=== PATIENT | female | born 1970 | race Caucasian/White ===

== ENCOUNTER → 2020-07-05 | Outpatient (CLI) | payer OTHER ==
[~2020-07-05] MED LIST: ADIPEX-P37.5 MG PO; ADVIL200 M1 PO; ALLEGRA ALLERG180 MG PO; ALLERCLEAR10 MG PO; BAYER CHEWABLE81 MG PO; BIRTH CONTROL PILL PO; BLISOVI 24 FE1 EACH PO; CYMBALTA30 MG PO; MS CONTIN15 MG PO; MULTI VITAMIN1 EACH PO; NEURONTIN 300M300 M2 PO; NORETHINDRONE AC5 M2 PO; TRAZODONE HCL100 MG PO; TYLENOL325 MG PO; ZYRTEC10 M2 PO
[2020-07-05 11:04] LABS: HEMATOCRIT 40.4 % (37.0-47.0); HEMOGLOBIN 13.1 gm/dL (12.0-15.0); MCH 25.7 pg (26.0-34.0); MCHC 32.5 g/dL (28.0-37.0); MCV 79.1 fL (80.0-100.0); RBC 5.11 mil/uL (4.20-5.00); RDW 16.9 % (10.5-14.5); WBC 6.5 thou/uL (4.0-11.0)
[2020-07-05 11:19] LABS: ALBUMIN 3.7 g/dL (3.4-5.0); CALCIUM 9.1 mg/dL (8.5-10.1); CREATININE 1.1 mg/dL (0.6-1.0); POTASSIUM 4.2 mmol/L (3.5-5.1)
[2020-07-05 11:20] LABS: PROTIME 10.9 Seconds (9.3-11.4)
[2020-07-05 11:56] LABS: URINE BILIRUBIN NEGATIVE (Negative); URINE BLOOD NEGATIVE (Negative); URINE CLARITY CLEAR; URINE COLOR YELLOW; URINE GLUCOSE-RANDOM* NEGATIVE (Negative); URINE KETONES NEGATIVE (Negative); URINE LEUKOCYTES-REFLEX NEGATIVE (Negative); URINE NITRITE-REFLEX NEGATIVE (Negative); URINE PROTEIN (DIPSTICK) TRACE (Negative); URINE SPECIFIC GRAVITY >= 1.030 (1.005-1.035); URINE UROBILINOGEN 0.2 E.U./dl (0.2-1.0)
== END ==
LOC: LAB 09:00
PROVIDERS: ATTEND Orthopaedic Surgery
DX: Z01.812 Encounter for preprocedural laboratory examination (principal); Z96.651 Presence of right artificial knee joint; M17.11 Unilateral primary osteoarthritis, right knee

== ENCOUNTER → 2020-07-10 | Outpatient (CLI) | payer OTHER ==
[~2020-07-10] MED LIST changes: -BAYER CHEWABLE81 MG PO; -MS CONTIN15 MG PO; -NEURONTIN 300M300 M2 PO
== END ==
LOC: LAB 11:21
PROVIDERS: ATTEND Orthopaedic Surgery
DX: Z01.812 Encounter for preprocedural laboratory examination (principal); Z20.822 Contact with and (suspected) exposure to COVID-19

== ENCOUNTER 2020-07-16 11:58 | Inpatient (IN) | payer OTHER ==
[2020-07-05 11:04] LABS: HEMATOCRIT 40.4 % (37.0-47.0); HEMOGLOBIN 13.1 gm/dL (12.0-15.0); MCH 25.7 pg (26.0-34.0); MCHC 32.5 g/dL (28.0-37.0); MCV 79.1 fL (80.0-100.0); RBC 5.11 mil/uL (4.20-5.00); RDW 16.9 % (10.5-14.5); WBC 6.5 thou/uL (4.0-11.0)
[2020-07-05 11:19] LABS: ALBUMIN 3.7 g/dL (3.4-5.0); CALCIUM 9.1 mg/dL (8.5-10.1); CREATININE 1.1 mg/dL (0.6-1.0); POTASSIUM 4.2 mmol/L (3.5-5.1)
[2020-07-05 11:20] LABS: PROTIME 10.9 Seconds (9.3-11.4)
[2020-07-05 11:56] LABS: URINE BILIRUBIN NEGATIVE (Negative); URINE BLOOD NEGATIVE (Negative); URINE CLARITY CLEAR; URINE COLOR YELLOW; URINE GLUCOSE-RANDOM* NEGATIVE (Negative); URINE KETONES NEGATIVE (Negative); URINE LEUKOCYTES-REFLEX NEGATIVE (Negative); URINE NITRITE-REFLEX NEGATIVE (Negative); URINE PROTEIN (DIPSTICK) TRACE (Negative); URINE SPECIFIC GRAVITY >= 1.030 (1.005-1.035); URINE UROBILINOGEN 0.2 E.U./dl (0.2-1.0)
[2020-07-16] VITALS (8 sets, daily range): BP systolic 114–125; BP diastolic 68–79
[~2020-07-16] VITALS: Ht 172.7 cm; Wt 112.5 kg
--- NOTE | 2020-07-16 18:30 | NUR ---
PT RECEIVED AT 1700 FROM [facility] RM ALERT AND IN NO ACUTE DISTRESS. PT ASSESSED AND ORIENTED TO THE UNIT. TEACHING DONE RE POST OP DRESSING AND POLAR TACHO. TAKING FLUIDS W/O NAUSEA. IV FLUIDS INFUSING. DENIES PAIN AT THIS TIME.
[2020-07-17] VITALS (8 sets, daily range): BP systolic 98–147; BP diastolic 52–70
--- NOTE | 2020-07-17 05:00 | NUR ---
RECIEVED CARE OF THIS PATIENT AT 1900. PATIENT ALERT ANDORIENTED X4. HAS BRENDA DRESSING ON R KNEE WITH TEDS AND SCD'S GISSELL. POLAR ICE ON R KNEE ALSO. 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 FLUIDS INFUSINF IN RH PIV. C/O PAIN, MED GIVEN WHEN TIME. SLEPT OFF AND ON DURING NIGHT.
[2020-07-17 05:45] LABS: HEMATOCRIT 35.1 % (37.0-47.0); HEMOGLOBIN 11.2 gm/dL (12.0-15.0); MCH 25.7 pg (26.0-34.0); MCV 80.4 fL (80.0-100.0); RBC 4.37 mil/uL (4.20-5.00); RDW 16.6 % (10.5-14.5); WBC 14.1 thou/uL (4.0-11.0)
--- NOTE | 2020-07-17 11:05 | NUR ---
Received awake on bed. Due medications given as prescribed, able to swallow meds w/o difficulty. On room air. Vital signs stable. On regular diet, tolerating well; no nausea, no vomiting and no abdominal pain noted. On MS, not on telemetry, no complains and signs of chest pain, crushing sensation and heaviness. Continent of bowel and bladder; using bedpan or bedside commode at times; falls bundle in place. With D51/2NS at 100cc/hr, infusing well at R hand. S/P TKR- R- BRENDA dressing, SCDs, Oren hose and ice pack in place; NVS intact. Assisted in ADLs. Complained of pain, due PRN pain meds given as prescribed. Pt seen and examined by physical therapist today, able to sit on the chair. Seen and examined by Ortho PA- discharge pending today, pt aware. Pharmacy called- one of pt's prescribed meds on Emar not carried by hospital- asked pt to bring meds from home if possible- pharmacist informed and aware. To continue monitoring patient.
--- NOTE | 2020-07-17 11:18 | NUR ---
ASSESSMENT: CM REVIEWED CHART AND SPOKE WITH PATIENT. PT IS S/P TKA. PT REPORTS LIVING IN A HOUSE WITH HER 14 YEAR OLD SON WHO SHE HAS PART OF THE WEEK. PT REPORTS SHE HAS ONE STEP TO ENTER THE HOME AND ABOUT 15 STEPS WITH HANDRAILS TO THE UPPER LEVEL. PT REPORTS SHE HAS A CANE AT HOME BUT WAS TOLD BY PHYSICAL THERAPY SHE WILL NEED A WALKER. CM NOTIFIED PT THAT CM CAN ASSIST. PT HAS NO PREFERENCE OF DME COMPANY. [employer] DOES NOT ACCEPT [employer]. CM REACHED OUT TO [facility] AND THEY CAN PROVIDER HER WITH A WALKER AND WILL DELIVER IT TO HER ROOM. CM FAXED [facility] NEEDED CLINICAL. PT [facility] [place] [place] [facility] THURSDAY AT 1330. PT WILL WORK WITH THERAPY AND POSSIBLE DISCHARGE. CM WILL CONTINUE TO FOLLOW.
--- NOTE | 2020-07-17 22:09 | NUR ---
ASSESSED AT START OF SHIFT. PT C/O PAIN MANAGED BY PO PAIN MEDICATION. EVENING MEDS GIVEN AND PT ALCON IT WELL. IV INTACT AND SL. RT KNEE DRESSING C/D/I. POLAR PACK, SCD'S, BRENDA DRESSING IN PLACE. FALL PREC IN PLACE. AND CALL LIGHT AT REACH.
[2020-07-18 03:00] VITALS: BP 105/67
[2020-07-18 04:59] LABS: HEMATOCRIT 32.1 % (37.0-47.0); HEMOGLOBIN 10.2 gm/dL (12.0-15.0); MCH 25.8 pg (26.0-34.0); MCHC 31.7 g/dL (28.0-37.0); MCV 81.3 fL (80.0-100.0); RBC 3.95 mil/uL (4.20-5.00); RDW 17.2 % (10.5-14.5); WBC 7.7 thou/uL (4.0-11.0)
[2020-07-18 07:53] VITALS: BP 110/65
--- NOTE | 2020-07-18 10:13 | O ---
[facility] [place] [address] OPERATIVE REPORT Name: CHIKI ECHEVARRIA Room #: 438-P [facility] Sean#: [id number] Admission: 07/16/20 Attend Phys: Haim Joya MD Discharge: Date of : 66 Report #: [id number] THIS REPORT FOR: cc: Physician not on staff Physician not on staff Haim Joya MD ~ DATE OF SERVICE: 07/16/2020 PREOPERATIVE DIAGNOSIS: Right knee osteoarthritis. POSTOPERATIVE DIAGNOSIS: Right knee osteoarthritis. PROCEDURE: Right total knee arthroplasty using Navio robotic pharmacy affairs assistant. SURGEON: Haim Joya MD. SPORTS EQUIPMENT REPAIRER: Saundra Díaz PA-C. INDICATIONS FOR SPORTS EQUIPMENT REPAIRER: Throughout the case, extensive retraction and manipulation of the knee was required. This was afforded to me by my pharmacy affairs assistant. ANESTHESIA: LMA with adductor canal block. IMPLANTS: [employer]hew size 4 Journey II BCS Oxinium femur, size 3 tibia, a size 11 polyethylene, and size 35 patella. TOURNIQUET TIME: 50 minutes. ESTIMATED BLOOD LOSS: 25 mL. COMPLICATIONS: None. SPECIMENS: None. CONDITION UPON LEAVING THE OPERATING ROOM: Stable. INDICATIONS FOR PROCEDURE: The patient is a 50-year-old female with right knee osteoarthritis. She had failed conservative measures for this; and after discussion with her, she elected for right total knee arthroplasty. DESCRIPTION OF PROCEDURE: Risks, benefits, alternatives, and complications were discussed in detail with the patient including, but not limited to, risk of anesthesia, risk of damage to nerves, arteries, blood vessels, risk for infection, bleeding, risk for continued knee pain, need for reoperation. Informed consent was obtained from the patient. Right knee was appropriately [address] [address] OPERATIVE REPORT Name: CHIKI ECHEVARRIA Room #: 438-P [facility] Arturo M.R.#: [id number] Admission: 07/16/20 Attend Phys: Haim Joya MD Discharge: Date of : 66 Report #: [id number] marked in the preoperative holding area. IV Ancef was given for preoperative antibiotics. Adductor canal block was placed by Anesthesia. She was brought to the operating room and placed in supine position on operating room table. LMA anesthesia was induced without complication. Tourniquet was placed on the right thigh. Right lower extremity was prepped and draped in normal sterile fashion. Timeout was performed properly identifying the patient and procedure as well as the instrumentation and implants. All in the operating room were in agreement. Right lower extremity was exsanguinated, tourniquet was inflated. Tourniquet time was 50 minutes. Standard midline approach to knee was made with 10 blade through the skin. Dissection was taken down sharply to the fascia. Deep flaps were developed medially and laterally. Fresh 10 blade was used to make a medial parapatellar arthrotomy and the knee was inspected. There was severe tricompartmental osteoarthritis. ACL and PCL were removed sharply. Reference pins were placed in the femur and the tibia. The knee was then digitally mapped using the ItsMy[employer]s robotic system. Intraoperative plan was made and we sized a size 4 femur with a size 3 tibia and a 10 spacer. After acceptance of the intraoperative plan, the distal femoral cut was made with Navio bur. Distal femoral cutting block was pinned in place and chamfer cuts were made. Attention was turned to the tibia. Remainder of the menisci removed with Bovie cautery. Tibial resection guide was pinned in place using the Navio for placement and tibial resection was made. Flexion and extension gaps were then checked and found to be tight medially in extension. A limited medial release was performed using the pie crust technique. This balanced the knee well. Tibia was then sized, found to be a size 3. A size 3 tibial trial was placed, pinned, and punched. A size 4 femoral trial was placed and box cut was made. This was then trialed with a size 10 and then a size 11 polyethylene and a size 11 polyethylene, demonstrated 1-2 mm of laxity medially and laterally throughout range of motion of the knee. 5 mm of bone was resected from the posterior surface of the patella and a size 35 patellar trial button was placed. Knee was taken through range of motion, found to be stable, found to have good patellar tracking. Trial components were removed. Bony ends were thoroughly irrigated with normal saline and final size 3 tibia, size 4 Journey II BCS Oxinium femur and a size 35 patella were cemented in place using standard cementation techniques. While the cement cured, a periarticular injection consisting of morphine, ropivacaine, epinephrine, and Toradol were placed around the knee joint capsule. After the cement cured, tourniquet was deflated. Hemostasis was obtained with Bovie cautery. Final size 11 polyethylene was placed. A gram of vancomycin was placed deep in the joint. The fascia was closed with 0 Vicryl, skin was closed with 2-0 Vicryl, skin staple and a BRENDA dressing was applied. The patient tolerated this procedure well and went to recovery room under care of anesthesia postoperatively. <ELECTRONICALLY SIGNED> By: Haim Joya MD 07/18/20 [id number] Haim Joya MD /nt
--- NOTE | 2020-07-18 11:02 | NUR ---
Assumed care of pt at 0700. Pt a&ox4. C/o pain in rt knee. Prn pain meds administered. Pt worked with physical therapy this am. Will likely stay in the hospital another night. Dressing c/d/i. SCDs and YONATAN hose in place. Polar care in place. Call light within reach. Will continue to monitor.
--- NOTE | 2020-07-18 13:48 | NUR ---
ON-GOING ASSESSMENT: CM REVIEWED CHART AND MET WITH PATIENT. PT DID NOT PROGRESS WELL WITH THERAPY TODAY AND WILL REMAIN IN HOUSE OVERNIGHT. CM DISCUSSED POSSIBLE OPTIONS FOR SNF IF NEEDED VS HOME HEALTH /OUTPATIENT. CM PROVIDED PATIENT WITH A [employer] SNF LIST FOR HER TO REVIEW. PT IS HOPEFUL SHE WILL BE ABLE TO PROGRESS WELL WITH THERAPY TOMORROW. CM WILL CONTINUE TO FOLLOW TO ASSIST NEEDED.
[2020-07-18] MEDS ORDERED: MS CONTIN15 MG PO (15:31)
[2020-07-18] MEDS ORDERED: BAYER CHEWABLE81 MG PO (15:31)
[2020-07-18] MEDS ORDERED: NEURONTIN 300M300 M2 PO (15:31)
[2020-07-18 15:45] VITALS: BP 106/63
[2020-07-18 20:48] VITALS: BP 99/57
--- NOTE | 2020-07-18 23:55 | NUR ---
ASSESSED AT START OF SHIFT. PT A&OX4. C/O PAIN MANAGED BY PO PAIN MEDS. IV INTACT AND SALINE LOCK. BRENDA DRESSING, POLAR PACK AND SCD'S IN PLACE. VOIDS VIA BED [place]. NIGHT TIME MEDS GIVEN AND PT ALCON IT WELL. FALL PREC IN PLACE AND CALL LIGHT AT REACH WILL CONT TO MONITOR.
[2020-07-19 05:24] LABS: HEMATOCRIT 34.2 % (37.0-47.0); HEMOGLOBIN 10.9 gm/dL (12.0-15.0); MCH 25.7 pg (26.0-34.0); MCHC 31.8 g/dL (28.0-37.0); MCV 80.8 fL (80.0-100.0); RBC 4.23 mil/uL (4.20-5.00); RDW 17.1 % (10.5-14.5); WBC 7.3 thou/uL (4.0-11.0)
[2020-07-19 05:47] VITALS: BP 97/53
[2020-07-19 07:59] VITALS: BP 92/58
--- NOTE | 2020-07-19 12:52 | NUR ---
ON-GOING ASSESSMENT: CM REVIEWED CHART AND SPOKE WITH PATIENT. PHYSICAL THERAPY SAW PATIENT AND RECOMMENDING SNF. PT REPORTS WANTING TO GO SOMEWHERE CLOSE TO WHERE HER MOTHER LIVES OFF [address]. PT HAS SNF LIST AND WANTED REFERRAL TO [facility]. REFERRAL SENT AND THEY CAN ACCEPT PATIENT. THEY HAVE SUBMITTED FOR AUTH AND CM SPOKE WITH [facility] AND REPORTS THEY HAVE AUTH TO ACCEPT HER TODAY. CHART COPY WAS ORDERED. CM FAXED DISCHARGE PAPERWORK TO FACILITY AND CONFIRMED THEY RECEIVED IT. TRANSPORTATION HAS BEEN ARRANGED FOR 1400. CM NOTIFIED PT, HER MOTHER, AND BEDSIDE RN. RN HAS THE NUMBER TO CALL REPORT. PT REPORTS NO FURTHER NEEDS FROM CM PRIOR TO DISCHARGE.
--- NOTE | 2020-07-19 14:10 | NUR ---
PT ASSESSED AT START OF SHIFT. PT PROGRESSING SOME BUT NEEDS MORE INTENSE THERAPY BEFORE GOING HOME. WORKED W/ THERAPY HERE AND PLAN IS FOR HER TO GO TO INPT REHAB FOR A WHILE. PT DISCHARGED AT THIS TIME W/ ALL BELONGINGS.
== END 2020-07-19 14:13 | DRG 470 ==
LOC: OR 11:58 → TBA 12:06 → OR 13:16 → 4S 17:11 → OR 17:12 → 4S 17:12
PROVIDERS: ADMIT Orthopaedic Surgery; ATTEND Orthopaedic Surgery
PROC: 0SRC069 Replacement of Right Knee Joint with Oxidized Zirconium on Polyethylene Synthetic Substitute, Cemented, Open Approach (ICD-10-PCS; principal; 2020-07-16)
PROC: 8E0Y0CZ Robotic Assisted Procedure of Lower Extremity, Open Approach (ICD-10-PCS; principal; 2020-07-16)
DX: M17.11 Unilateral primary osteoarthritis, right knee (principal); Z88.0 Allergy status to penicillin
CPT/HCPCS: 10102; 50010; 50101; 50415; 50954; 51130; 51225; 51320; 51412; 53000; 53078; 53365; 56527; 56528; 57095; 57103; 57110; 57127; 57180; 62110; 62900; 64039; 70005